=== PATIENT | male | born 1990 | race Two or more races ===

== ENCOUNTER 2020-11-03 12:46 | Emergency (ER) | payer OTHER ==
[~2020-11-03] VITALS: Ht 177.8 cm; Wt 75.0 kg
[2020-11-03] MEDS ORDERED: METHOCARBAMOL 500 MG TABLET PO ONE (14:00)
[2020-11-03] MEDS ORDERED: NAPROXEN 250 MG TABLET PO ONE (14:00)
[2020-11-03] MEDS ORDERED: LIDOCAINE 5% TRANSDERMAL PATCH TD ONE (14:00)
[2020-11-03 14:56] VITALS: BP 133/66
== END 2020-11-03 15:20 | disposition home or self-care (01) ==
LOC: EMS 13:18
DX: M54.5 Low back pain (principal)
CPT/HCPCS: 99284; Z7502; Z7610